=== PATIENT | female | born 1950 | race Caucasian/White ===

== ENCOUNTER 2021-07-26 15:53 | Emergency (ER) | payer MEDICARE, OTHER ==
[2021-07-26] MEDS ORDERED: ZOFRAN ODT 4 MG4 MG PO (20:50)
[2021-07-26] MEDS ORDERED: HYDROCODON-ACE1 EAC4 PO (20:50)
[2021-08-02] MEDS ORDERED: FLONASE 0.05% N16 GM (07:22)
[2021-08-02] MEDS ORDERED: IRBESARTAN-HCT1 EAC1 PO (07:22)
[2021-08-02] MEDS ORDERED: LATANOPROST2.5 ML OP (07:23)
[2021-08-02] MEDS ORDERED: PROTONIX 40 MG40 M1 PO (07:23)
[2021-08-02] MEDS ORDERED: TENORMIN 50 MG50 MG PO (07:23)
[2021-08-02] MEDS ORDERED: ASPIRIN CHEWABL81 MG PO (07:24)
[2021-08-02] MEDS ORDERED: ASPIR-TRIN325 MG PO (09:35)
[2021-08-18] MEDS ORDERED: ASPIRIN CHEWABL81 MG PO (09:22)
== END 2021-07-26 23:00 | disposition home or self-care (01) ==
LOC: ER1 15:53
DX: S82.852A Displaced trimalleolar fracture of left lower leg, initial encounter for closed fracture (principal); I25.2 Old myocardial infarction; I11.9 Hypertensive heart disease without heart failure; Z88.2 Allergy status to sulfonamides; Z88.1 Allergy status to other antibiotic agents; Z88.5 Allergy status to narcotic agent; W19.XXXA Unspecified fall, initial encounter; X50.9XXA Other and unspecified overexertion or strenuous movements or postures, initial encounter; Y92.009 Unspecified place in unspecified non-institutional (private) residence as the place of occurrence of the external cause
CPT/HCPCS: 27818; 73590; 73610; 73700; 94760; 96374; 96375; 99152; 99283; J2270; J2405; J2704